=== PATIENT | female | born 1970 | race Caucasian/White ===

== ENCOUNTER → 2016-11-26 | Outpatient (CLI) | payer OTHER ==
--- NOTE | 2016-11-26 16:40 | MAM ---
EXAM DESCRIPTION: Screening Mammogram,Bilateral CLINICAL HISTORY: 46 years, Female, Screening mammogram COMPARISON: November 14, 2015 TECHNIQUE: CC and MLO digital mammograms with computer aided detection. FINDINGS: The breast parenchyma is heterogeneously dense which may decrease the sensitivity of mammography. There is no dominant mass nor any suspicious microcalcifications. Benign microcalcifications are present. IMPRESSION: BIRAD CATEGORY: 1 NEGATIVE Electronically signed by: Aleksandr Bella MD 11/26/2016 4:38 PM CDT Workstation: [id number]
== END ==
LOC: MAMMO 16:00
PROVIDERS: ATTEND Obstetrics & Gynecology
DX: Z12.31 Encounter for screening mammogram for malignant neoplasm of breast (principal)

== ENCOUNTER → 2018-11-25 | Outpatient (CLI) | payer OTHER ==
--- NOTE | 2018-11-26 16:30 | MAM ---
EXAM DESCRIPTION: 3D Screening BILATERAL : Digital Mammography. CLINICAL HISTORY: 48 years Female ANNUAL SCREENING . No complaints. No personal history of breast cancer. Remote family history of breast cancer. Childbirth. Premenopausal. No HRT. Lifetime risk of developing breast cancer (Tyrer-Cuzick model)(%): 6.7. COMPARISON: Bilateral 2-D screening mammography 11/26/2016.. TECHNIQUE: Bilateral CC and MLO projection full-field images, digital tomosynthesis mammographic technique. Bilateral digital 2-D full-field MLO images. CAD not available for tomosynthesis or 2-D images. FINDINGS: The breast parenchymal density pattern is: Heterogeneously dense breast tissue, which may obscure small masses. No skin thickening or nipple retraction. Nodular mass density not seen on the prior study overlying the left pectoral muscle, approximately 3:00 to 4:00 position. Also not well demonstrated on the CC tomosynthesis images. Focal asymmetry at the 9:00-9:30 approximately 4.5 cm from the nipple. Position of the left breast appears larger since the prior study. These are not associated with microcalcifications. No new focal, stellate mass or density, focal asymmetry , and no suspicious microcalcifications right breast. IMPRESSION: BI-RADS CATEGORY: 0 - INCOMPLETE- Need additional imaging evaluation. FOLLOW-UP: Recall for additional imaging: Full-field LM digital tomosynthesis left breast with targeted left breast ultrasound of the regions of interest.. Written communication concerning the IMPRESSION and Follow-up, will be mailed to the patient and referring health care provider. Electronically signed by: Sreedhar Sena MD 11/26/2018 4:28 PM CDT
== END ==
LOC: MAMMO 08:08
PROVIDERS: ATTEND Obstetrics & Gynecology
DX: Z12.31 Encounter for screening mammogram for malignant neoplasm of breast (principal)

== ENCOUNTER → 2018-12-16 | Outpatient (CLI) | payer OTHER ==
--- NOTE | 2018-12-16 17:41 | US ---
EXAM DESCRIPTION: Breast,Left (accession [id number]), Ultrasound. 3D Diagnostic, Left (accession [id number]): Digital mammography. CLINICAL HISTORY: 48 yearsFemaleABNORMAL MAMMO . Posterior mass density left breast and focal asymmetry in the middle third left breast. COMPARISON: Bilateral screening digital breast tomosynthesis 11/25/2018. TECHNIQUE: Left breast LM projection full-field images, digital mammographic tomosynthesis technique. Left breast 2-D digital full-field images. LM projection. CAD not available . Transcutaneous scanning of the left breast utilizing harrison-scale and Doppler modes. 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 Sena. FINDINGS: The breast parenchymal density pattern is: Extremely dense breast tissue, which lowers the sensitivity of mammography. No skin thickening or nipple retraction mass density again noted overlying the pectoral muscle at the posterior nipple line. Focal asymmetry in the middle third of the medial left breast not well seen on the tomosynthesis images. Ultrasound: Mostly fibroglandular tissues with minimal fatty replacement. Scanning of the left breast 9:00 position 5 cm from the nipple. Chest wall is visualized including the muscle. No dominant solid mass or distinct cyst. No parenchymal edema or large calcifications. Scanning of the middle third of the medial left breast with similar findings. No abnormal vascularity. IMPRESSION: Benign exam. BIRAD CATEGORY: 2 BENIGN FINDINGS. RECOMMENDATIONS: FOLLOW UP: Return to routine digital bilateral mammographic screening, one year interval from November 2018. Written communication explaining the IMPRESSION and follow-up, will be mailed to the patient and referring health care provider. The FINDINGS and the FOLLOW-UP plan were reviewed in person with the patient after the examination. According to the [employer], yearly mammograms are recommended starting at age 40 and continuing as long as a woman is in good health. Any breast change noted on a breast self-exam should be reported promptly to the patient's healthcare provider. Breast MRI is recommended for women with an approximately 20-25% or greater lifetime risk of breast cancer, including women with a strong family history of breast or ovarian cancer and women who have been treated for Hodgkin's disease. A negative mammographic report should not delay tissue diagnosis in patients with significant clinical history or physical findings. Extremely dense breast tissue limits the sensitivity of digital mammography. Electronically signed by: Sreedhar Sena MD 12/16/2018 5:40 PM CDT
== END ==
LOC: MAMMO 10:41
PROVIDERS: ATTEND Obstetrics & Gynecology
DX: R92.8 Other abnormal and inconclusive findings on diagnostic imaging of breast (principal)
CPT/HCPCS: 76641; 77065; G0279